=== PATIENT | male | born 1985 | race Caucasian/White ===

== ENCOUNTER 2018-12-11 09:51 | Emergency (ER) | payer BC, OTHER ==
[~2018-12-11] VITALS: Ht 182.9 cm; Wt 83.9 kg
[2018-12-11] MEDS: LIDOCAINE 1% INJ 20 ML 20 ML VIAL ONE (10:15)
[2018-12-11 10:17] VITALS: BP 117/76
--- NOTE | 2018-12-11 10:25 | ED Integumentary General ---
General Chief Complaint: Foreign Body Stated Complaint: FISH HOOK STUCK IN CHIN Source: patient Exam Limitations: no limitations History of Present Illness Date Seen by Provider: Dec 11, 2018 Time Seen by Provider: 10:20 Initial Comments This 33-year-old white male presents with a fishhook to the chin. This occurred shortly prior to presentation to the emergency department. The patient embedded a single federica of his trouble walking and to the chin. Patient denies other injury. The patient is in need of tetanus immunization. Patient is complaining of minor sharp pain to the puncture wound site. Allergies and Home Medications Allergies Coded Allergies: Penicillins (Verified Allergy, Unknown, 12/11/18) Patient Home Medication List Home Medication List Reviewed: Yes Review of Systems Review of Systems Constitutional: no symptoms reported EENTM: see HPI, other (fishhook the left side of the chin.) Respiratory: no symptoms reported Cardiovascular: no symptoms reported Gastrointestinal: no symptoms reported Genitourinary: no symptoms reported Musculoskeletal: no symptoms reported Skin: no symptoms reported Psychiatric/Neurological: No Symptoms Reported Endocrine: No Symptoms Reported Hematologic/Lymphatic: No Symptoms Reported Past Ibamtfl-Ciqvde-Cwjock Hx Past Med/Social Hx: Reviewed Nursing Past Med/Soc Hx Physical Exam Vital Signs Capillary Refill : General Appearance: WD/WN, mild distress HEENT: other (fishhook to the chin.) Neck: normal inspection Cardiovascular: normal peripheral pulses Respiratory: normal breath sounds Extremities: normal range of motion, non-tender, normal inspection Neurologic/Psychiatric: no motor/sensory deficits Skin: normal color, warm/dry, other (Bellamy to the chin) Progress/Results/Core Measures Results/Orders My Orders Orders - ELVIRA DIAMOND MD Dipht,Pertuss(Acell),Tet Adult (Boostrix (12/11/18 10:30) Progress Progress Note : Time: 10:22 Progress Note After obtaining permission from the patient for removal of the fish hook 1 percent Xylocaine was employed for local anesthesia after the wound was cleaned. The federica of the fishhook was disengaged by creating a small extension of the patient's puncture wound with a number 11 blade. The federica was easily extracted. Departure Impression Primary Impression: Foreign body Disposition: 01 HOME, SELF-CARE Condition: Improved Departure-Patient Inst. Decision time for Depature: 10:23 Patient Instructions: Removal of Foreign Body in Skin Add. Discharge Instructions: Keep the area clean by washing with soap and water twice a day. Watch for signs of infection. Ibuprofen or Tylenol for pain. Return if any problems or questions. All discharge instructions reviewed with patient and/or family. Voiced understanding. ELVIRA DIAMOND MD Dec 11, 2018 10:25
[2018-12-11] MEDS ORDERED: TETANUS,DIPTH,PERTUSS P/F (BOOSTRIX) 0.5 ML VIAL IM ONE (10:30)
[2018-12-11] MEDS ORDERED: LIDOCAINE 1% INJ 20 ML 20 ML VIAL INJ ONE (10:45)
== END 2018-12-11 10:39 | disposition home or self-care (01) ==
LOC: ER FS 09:51
DX: S00.85XA Superficial foreign body of other part of head, initial encounter (principal); Z88.0 Allergy status to penicillin; W45.8XXA Other foreign body or object entering through skin, initial encounter
CPT/HCPCS: 90471; 90715

== ENCOUNTER → 2021-03-27 | Outpatient (CLI) | payer BC ==
--- NOTE | 2021-03-27 11:12 | Diagnostic Imaging Report ---
INDICATION: Injury to the left knee. TIME OF EXAM: 10:58 AM. FINDINGS: Four views of the left knee demonstrate normal alignment. The joint spaces are well maintained. The articular surfaces are smooth. No fracture, dislocation, or effusion is identified. IMPRESSION: No acute bony abnormality is detected. Dictated by: Dictated on workstation # [id number]
== END ==
LOC: RAD FS 10:33
PROVIDERS: ATTEND Nurse Practitioner
DX: S89.92XA Unspecified injury of left lower leg, initial encounter (principal)
CPT/HCPCS: 73562